=== PATIENT | female | born 1950 | race Caucasian/White ===

== ENCOUNTER 2019-04-09 09:37 | Emergency (ER) | payer MEDICARE ==
[~2019-04-09] VITALS: Ht 152.4 cm; Wt 71.2 kg
[2019-04-09 09:38] VITALS: BP 179/69
[2019-04-09] MEDS: DIAZEPAM 5 MG TAB PO ONE (10:10)
[2019-04-09 10:34] VITALS: BP 178/79
== END 2019-04-09 10:34 | disposition home or self-care (01) ==
LOC: MED 09:37
DX: M54.31 Sciatica, right side (principal); M79.604 Pain in right leg; E11.9 Type 2 diabetes mellitus without complications; Z88.2 Allergy status to sulfonamides
CPT/HCPCS: 99283

== ENCOUNTER 2019-06-11 12:00 | Emergency (ER) | payer MEDICARE ==
[~2019-06-11] VITALS: Ht 160 cm; Wt 70.3 kg
[2019-06-11 12:20] VITALS: BP 136/54
--- NOTE | 2019-06-11 13:10 | NUR ---
PT AMBULATED TO BED WITH FAMILY
--- NOTE | 2019-06-11 13:18 | NUR ---
BIB SELF C/O UPPER ABD PAIN 8/10 [place] STABBING X1 DAY. N/V/D PRESENT, LAST BM WAS TODAY, LAST EMESIS WAS ALSO TODAY. PATIENT REPORTS A SUDDEN ONSET OF SYMPTOMS BEGINNING LAST NIGHT. REPORTS RECENT TRAVEL TO ON SATURDAY. BOWEL SOUNDS NORMOACTIVE IN ALL QUADRANTS, ABD FIRM/NON TENDER. DENIES SOB/CP. NO BACK/FLANK PAIN PRESENT. AAOX4. CAP REFILL <3. PMH: DM, HTN ALLERGIES: SULFAS
--- NOTE | 2019-06-11 13:33 | NUR ---
BLOOD TAKEN AT BEDSIDE AND SEND TO LAB.
[2019-06-11] MEDS ORDERED: LOPERAMIDE 2 MG CAP PO ONE (13:40)
[2019-06-11] MEDS ORDERED: NACL 0.9% 1,000 ML IV ONE (13:40)
[2019-06-11] MEDS ORDERED: KETOROLAC 30 MG/ML VIAL IVP ONE (13:40)
[2019-06-11] MEDS ORDERED: ONDANSETRON 4 MG/2 ML VIAL IVP ONE (13:40)
[2019-06-11 14:08] LABS: BILIRUBIN,URINE NEGATIVE (NEGATIVE); BLOOD, URINE NEGATIVE (NEGATIVE); COLOR,URINE YELLOW (YELLOW); LEUKOCYTE ESTERASE ,URINE NEGATIVE (NEGATIVE); NITRITE, URINE POSITIVE (NEGATIVE); UGLUCOSE 3+ (NEGATIVE)
[2019-06-11 14:09] LABS: APPEARANCE,URINE HAZY (CLEAR)
[2019-06-11 14:09] LABS: EOSINOPHILS % (AUTO) 0.1 % (0.0-4.0); LYMPHOCYTES # (AUTO) 0.5 K/uL (2.5-16.5)
[2019-06-11 14:17] LABS: RBC,URINE 0-5 /HPF (0-5)
[2019-06-11 14:17] LABS: BASOPHILS # (AUTO) 0.1 K/uL (0.00-0.22); BASOPHILS % (AUTO) 0.6 % (0.0-2.0); HEMATOCRIT 36.7 % (36-48); HEMOGLOBIN 12.2 g/dL (12.0-16.0); MEAN CORPUSCULAR HEMOGLOBIN 29 pg (27-31); MEAN CORPUSCULAR HGB CONC 33 g/dL (33-37); MEAN CORPUSCULAR VOLUME 85.5 fL (80-94); MONOCYTES # (AUTO) 0.2 K/uL (0.8-1.0); MONOCYTES % (AUTO) 2.4 % (1.7-9.3); NEUTROPHILS # (AUTO) 8.3 K/uL (1.8-7.7); NEUTROPHILS % (AUTO) 91.9 % (42.2-75.2); PLATELET COUNT (AUTO) 246 K/uL (140-450); RED BLOOD CELL COUNT(AUTO) 4.29 MIL/uL (4.20-5.40); RED CELL DISTRIBUTION WIDTH 14.2 % (11.6-13.7)
[2019-06-11 14:35] LABS: ANION GAP 14.1 (8-16); CARBON DIOXIDE 25.1 mmol/L (21-32); CREATININE 1.2 mg/dL (0.6-1.3); POTASSIUM 5.2 mmol/L (3.5-5.1)
[2019-06-11 14:42] LABS: ALBUMIN 3.5 g/dL (3.4-5.0); TOTAL BILIRUBIN 0.5 mg/dL (0.0-1.0)
[2019-06-11] MEDS ORDERED: INSULIN REGULAR, HUMAN 100 UNIT/ML VIAL SUBQ ONE (14:50)
[2019-06-11] MEDS ORDERED: NITROFURANTOIN 100 MG CAP PO ONE (15:45)
[2019-06-11 16:17] VITALS: BP 117/50
--- NOTE | 2019-06-11 16:17 | NUR ---
Patient discharged with v/s stable. Written and verbal after care instructions given and explained. Patient alert, oriented and verbalized understanding of instructions. Ambulatory with steady gait. All questions addressed prior to discharge. ID band removed. Patient advised to follow up with PMD. Rx of MACROBID, ZOFRAN given. Patient educated on indication of medication including possible reaction and side effects. Opportunity to ask questions provided and answered.
== END 2019-06-11 16:17 | disposition home or self-care (01) ==
LOC: MED 12:00
DX: N39.0 Urinary tract infection, site not specified (principal); A08.4 Viral intestinal infection, unspecified; E11.65 Type 2 diabetes mellitus with hyperglycemia; E87.5 Hyperkalemia; I10 Essential (primary) hypertension; Z98.890 Other specified postprocedural states; Z88.2 Allergy status to sulfonamides
CPT/HCPCS: 36415; 80053; 81001; 83690; 85025; 87086; 96361; 96372; 96374; 96375; 99283; J1815; J1885; J2405; J7030; 87186